=== PATIENT | male | born 1990 | race Caucasian/White ===

== ENCOUNTER 2016-07-02 07:46 | Emergency (ER) | payer OTHER ==
[2016-07-02 08:34] VITALS: BP 121/71
--- NOTE | 2016-07-02 08:55 | UC ---
Abdominal Pain Male HPI - HPI Summary HPI Summary: 26 yo male awoke today at 6AM with his bed drenched in sweat has had 5-6 episodes of diarrhea since then some left sided abd pain states that for one month he has had increased stooling (3-4 x day) some tenesmus some left sided crampy abd pain no blood in stool no mucous no wt loss no UTI symptoms - History of Current Complaint Chief Complaint: UCGI Stated Complaint: SOB,DIARRHEA,SWEATS Time Seen by Provider: 07/02/16 08:53 Onset/Duration: Sudden Onset, Lasting Hours Timing: Constant Severity Initially: Moderate Severity Currently: Moderate Pain Intensity: 4 Pain Scale Used: 0-10 Numeric Location: Other - left sided Radiates: No Character: Cramping Aggravating Factor(s):: Nothing Alleviating Factor(s): Nothing Associated Signs And Symptoms: Positive: Diaphoresis, Cough - has daily morning cough, Diarrhea. Negative: Fever - Allergies/Home Medications Allergies/Adverse Reactions: Allergies Allergy/AdvReac Type Severity Reaction Status Date / Time No Known Allergies Allergy Verified 07/02/16 07:53 Home Medications: Home Medications NK [No Home Medications Reported] 07/02/16 [History Confirmed 07/02/16] PMH/Surg Hx/FS Hx/Imm Hx Previously Healthy: Yes - Surgical History Surgical History: None Surgery Procedure, Year, and Place: right arm surgery , repair from dog bite - Family History Known Family History: Positive: Other - no hx Crohn's or UC Negative: Cardiac Disease, Hypertension, Diabetes - Social History Alcohol Use: None Substance Use Type: None Smoking Status (MU): Former Smoker Have You Smoked in the Last Year: No When Did the Patient Quit Smoking/Using Tobacco: 2016 - Immunization History Most Recent Influenza Vaccination: Not the Season Review of Systems Constitutional: Negative Skin: Negative Eyes: Negative ENT: Negative Respiratory: Negative Cardiovascular: Negative Gastrointestinal: Abdominal Pain, Diarrhea Genitourinary: Negative Motor: Negative Neurovascular: Negative Musculoskeletal: Negative Neurological: Negative Psychological: Negative All Other Systems Reviewed And Are Negative: Yes Physical Exam Triage Information Reviewed: Yes Appearance: Well-Appearing, No Pain Distress, Well-Nourished, Other: - non toxic Vital Signs: Initial Vital Signs Temp 97.9 F 07/02/16 07:51 Pulse 76 07/02/16 07:51 Resp 16 07/02/16 07:51 BP 121/71 07/02/16 07:51 Pulse Ox 100 07/02/16 07:51 Vital Signs Reviewed: Yes Eyes: Positive: Conjunctiva Clear ENT: Positive: Hearing grossly normal, Pharynx normal. Negative: Pharyngeal erythema, Nasal drainage, Trismus, Muffled/hoarse voice Dental Exam: Normal Dental: Positive: Other: - chipped upper inciser Neck: Positive: Supple, Nontender, No Lymphadenopathy Respiratory: Positive: Lungs clear, Normal breath sounds, No respiratory distress, No accessory muscle use Cardiovascular: Positive: RRR, No Murmur. Negative: Tachycardia, Bradycardia Abdomen Description: Positive: No Organomegaly, Soft, Other: - tender LUQ and LLQ, no peritonel signs. Negative: Nontender, CVA Tenderness (R), CVA Tenderness (L), Distended, Hepatomegaly, McBurney's Point Tenderness, Peritoneal Signs, Pulsatile Mass, Splenomegaly Musculoskeletal: Positive: ROM Intact, No Edema Neurological: Positive: Alert Psychological Exam: Normal Skin Exam: Normal Abd Pain Male Course/Dx - Differential Dx/Clinical Impression Differential Diagnosis/HQI/PQRI: Diverticulitis, Other - colitis Provider Diagnoses: change in bowel habits. diarrhea. left sided abd tenderness Discharge - Discharge Plan Condition: Stable Disposition: HOME Patient Education Materials: Acute Diarrhea (ED), Abdominal Pain (ED) Forms: *Work Release Referrals: Chin Huerta MD [Medical Doctor] - As Soon As Possible Additional Instructions: rest fluids bring in stool for studies I think you need to see a crating and moving estimator (GI specialist) blood work is pending TO ER FOR NEW OR WORSENING SYMPTOMS
[2016-07-02 14:19] LABS: Hematocrit 45 % (42-52); Hemoglobin 15.4 g/dl (14.0-18.0); Mean Corpuscular HGB Conc 34 g/dl (31-36); Mean Corpuscular Hemoglobin 30 pg (27-31); Mean Corpuscular Volume 87 fL (80-94); Mean Platelet Volume 8 um3 (7.4-10.4); Red Blood Count 5.18 10^6/ul (4.0-5.4); Red Cell Distribution Width 13 % (10.5-15); White Blood Count 8.9 10^3/ul (3.5-10.8)
[2016-07-02 15:21] LABS: Albumin 4.7 g/dL (3.2-5.2); BUN/Creatinine Ratio 21.3 (8-20); Calcium 9.6 mg/dL (8.6-10.3); EGFR African American 131.9 (>60); EGFR Non-African American 102.5 (>60); Globulin 2.9 g/dL (2-4); Potassium 3.9 mmol/L (3.5-5.0); Total Bilirubin 0.5 mg/dL (0.2-1.0); Total Protein 7.6 g/dL (6.4-8.9)
[2016-07-02 15:27] LABS: Erythrocyte Sed Rate 10 mm/Hr (0-14)
== END 2016-07-02 09:34 | disposition home or self-care (01) ==
LOC: UCCORT 07:46
DX: K59.1 Functional diarrhea (principal); R10.812 Left upper quadrant abdominal tenderness; R10.814 Left lower quadrant abdominal tenderness; Z87.891 Personal history of nicotine dependence
CPT/HCPCS: 36415; 80053; 85025; 85652; 99211; G0463

== ENCOUNTER 2017-02-18 15:59 | Emergency (ER) | payer BC, OTHER ==
[2017-02-18 16:30] VITALS: BP 132/85
--- NOTE | 2017-02-18 16:39 | UC ---
Complaint Male HPI - HPI Summary HPI Summary: 26 year old with personal complaint. starting 02/15/17-had pain/redness in right groin area, yesterday had some light jean baptiste/scott color drainage from this area but he also sweats a lot at work . no fever. no redness spreading. mild itch. no new sexual partners. no previous STDs. no lesions on penis or testicular pain. no dysuria [ End ] - History of Current Complaint Chief Complaint: UCGeneralIllness Stated Complaint: PERSONAL Time Seen by Provider: 02/18/17 16:38 Hx Obtained From: Patient Onset/Duration: Gradual Onset Timing: Constant Severity Initially: Mild Severity Currently: Moderate Aggravating Factor(s): Nothing Alleviating Factor(s): Nothing Associated Signs And Symptoms: Positive: Negative - Allergies/Home Medications Allergies/Adverse Reactions: Allergies Allergy/AdvReac Type Severity Reaction Status Date / Time No Known Allergies Allergy Verified 02/18/17 16:29 PMH/Surg Hx/FS Hx/Imm Hx Previously Healthy: Yes - Surgical History Surgical History: None Surgery Procedure, Year, and Place: right arm surgery , repair from dog bite - Family History Known Family History: Positive: None, Other - no hx Crohn's or UC Negative: Cardiac Disease, Hypertension, Diabetes - Social History Occupation: Employed Full-time Alcohol Use: Occasionally Substance Use Type: None Smoking Status (MU): Light Every Day Tobacco Smoker Type: Cigarettes Amount Used/How Often: 2 cigs daily Have You Smoked in the Last Year: No When Did the Patient Quit Smoking/Using Tobacco: 2 weeks ago - Immunization History Most Recent Influenza Vaccination: none Review of Systems Skin: Rash Is Patient Immunocompromised?: No All Other Systems Reviewed And Are Negative: Yes Physical Exam Triage Information Reviewed: Yes Appearance: Well-Appearing, No Pain Distress, Well-Nourished Vital Signs: Initial Vital Signs Temp 98.6 F 02/18/17 16:23 Pulse 101 02/18/17 16:23 Resp 15 02/18/17 16:23 BP 132/85 02/18/17 16:23 Pulse Ox 100 02/18/17 16:23 Vital Signs Reviewed: Yes Eye Exam: Normal Neck: Positive: 1 Respiratory Exam: Normal Cardiovascular Exam: Normal Abdominal Exam: Normal Musculoskeletal Exam: Normal Neurological Exam: Normal Psychological Exam: Normal Skin Exam: Normal Skin: Positive: Other - right inguinal red round flat patch 1x1 cm. no disharge. not affecting scrotum or penis. no inguinal lymphadenpathy. no streaking. no pain to palpation Complaint Male Course/Dx - Differential Dx/Diagnosis Differential Diagnosis/HQI/PQRI: Epididymitis, Ureteral Calculi Provider Diagnoses: [place] itch Discharge - Discharge Plan Condition: Good Disposition: HOME Prescriptions: Clotrimazole W/ Betamethasone [Clotrimazole/Betamethason 1-0.05 %] 1 tube TOPICAL BID #1 tube Patient Education Materials: [place] Itch (ED) Referrals: No Primary Care Phys,NOPCP [Primary Care Provider] - 4 Days (if needed )
== END 2017-02-18 17:12 | disposition home or self-care (01) ==
LOC: UCCORT 15:59
DX: B35.6 Tinea cruris (principal); F17.210 Nicotine dependence, cigarettes, uncomplicated
CPT/HCPCS: 99212; G0463